=== PATIENT | female | born 1945 | race Native Hawaiian/Other Pacific Islander ===

== ENCOUNTER 2022-06-06 12:06 | Emergency (ER) | payer OTHER ==
[~2022-06-06] VITALS: Ht 165.1 cm; Wt 88.0 kg
[2022-06-06 12:19] VITALS: TEMP 97.6
[2022-06-06 13:15] LABS: PLATELET COUNT 276 K/uL (152-353)
[2022-06-06 13:25] LABS: POTASSIUM 3.4 mmol/L (3.6-5.2)
[2022-06-06 15:30] VITALS: BP 123/60
== END 2022-06-06 15:41 | disposition home or self-care (01) ==
LOC: ED 12:06
PROVIDERS: Family Medicine
DX: K56.7 Ileus, unspecified (principal); B34.9 Viral infection, unspecified; E87.6 Hypokalemia
CPT/HCPCS: 36415; 80053; 81002; 82150; 83690; 84484; 85027; 87502; 93005; 96360; 96361; 99284; J2405